=== PATIENT | male | born 1965 | race Caucasian/White ===

== ENCOUNTER 2023-02-03 17:04 | Emergency (ER) | payer OTHER, SELFPAY ==
[2023-02-03 17:13] VITALS: BP 114/72; PULSE 92; RESP 16; TEMP 36.3; O2SAT 100
[2023-02-03 17:40] LABS: Basophils Absolute Auto 0.1 K/mm3 (0.0-0.1); Basophils Percent Auto 0.8 % (0.2-1.2); Eosinophils Percent Auto 0.6 % (0-4.4); Hemoglobin 13.3 g/dL (14.0-18.0); Immature Granulocyte Absolute 0.07 K/mm3 (0.00-0.031); Lymphocytes Absolute Auto 1.81 K/mm3 (0.9-3.2); Lymphocytes Percent Auto 24.9 % (18.3-44.2); Mean Corpuscular HGB Conc 32.4 g/dl (32-36); Mean Corpuscular Hemoglobin 31.2 pg (26-34); Mean Corpuscular Volume 96.2 fl (80-100); Mean Platelet Volume 9.6 fl (7.4-10.4); Monocytes Absolute Auto 0.8 K/mm3 (0.1-0.6); Monocytes Percent Auto 10.6 % (2.6-8.5); Neutrophils Absolute Auto 4.5 K/mm3 (1.3-6.7); Neutrophils Percent Auto 62.1 % (45.5-73.1); Platelet Count Result 326 k/mm3 (150-375); Red Blood Count 4.26 M/mm3 (4.6-6.20); Red Cell Distribution Width 14.4 % (11.5-14.5); White Blood Count 7.3 K/mm3 (4.5-10.0)
[2023-02-03 17:41] LABS: Appearance Urine Clear (Clear); Bilirubin Urine Negative (Negative); Blood Urine Negative (Negative); Color Urine Yellow (Yellow); Glucose Urine UA Negative (Negative); Ketones Urine Negative (Negative); Leukocyte Esterase Ur Negative LEU/UL (Negative); Nitrate Urine Negative (Negative); Protein Urine Negative (Negative); Specific Grav Ur 1.011 (1.001-1.035)
[2023-02-03 17:50] LABS: Alanine Aminotransferase 17 U/L (6-50); Albumin Level 3.9 g/dL (3.5-5.1); Alkaline Phosphatase 55 U/L (38-126); Anion Gap 5 mmol/L (8-16); Aspartate Amino Transferase 24 U/L (17-59); Bilirubin,Total 0.3 mg/dL (0.2-1.3); Blood Urea Nitrogen 16 mg/dL (9-20); Calcium 8.5 mg/dL (8.4-10.2); Carbon Dioxide 29 mmol/L (22-30); Chloride 104 mmol/L (98-107); Estimated CRCL calculation 104 ml/min; Estimated Glomerular Filt Rate > 60; Glucose 108 mg/dL (65-110); Potassium 4.9 mmol/L (3.4-5.0); Sodium 138 mmol/L (137-145)
[2023-02-03 17:52] LABS: Add Urine Microscopic? NO
[2023-02-03 18:06] LABS: Barbiturate Screen Urine Negative (Negative); Benzodiazepines Screen Urine Negative (Negative)
[2023-02-03 18:09] LABS: Acetaminophen < 10 ug/mL (10-30); Amphetamine Screen Urine Negative (Negative); Cannabinoid Screen Urine Negative (Negative); Cocaine Screen Urine Negative (Negative); Ethanol < 10 mg/dL (<10); Methadone Screen Urine Negative (Negative); Phencyclidine Screen Urine Negative (Negative); Salicylate < 1.0 mg/dL (2-20)
[2023-02-03 18:21] LABS: Opiate Screen Urine Negative (Negative)
--- NOTE | 2023-02-03 18:28 | ED.PSYCH ---
HPI - Psych General Chief Complaint: Psychiatric Symptoms Stated Complaint: Manic episode, making SI per staff, pt denies SI Time Seen by Provider: 02/03/23 17:32 Source: patient and old records reviewed Mode of arrival: EMS Limitations: no limitations History of Present Illness HPI Narrative: Patient is a 57 y/o male, with PMH of alcoholism, who presents to the ED via EMS with report of SI. Patient is currently residing at [facility]. He reports he was sitting in his room today and did not feel like going to the group therapy session. He got into a verbal argument with staff and felt like he was being forced to do something he did want to do. He also states another resident there was making comments about his sexuality and being out on the streets which made him feel triggered and angry. Patient reportedly made suicidal comments to staff and comments of wanting to harm the other resident. He states he made the statements in part to try to get out of [place], but they were also partly true. He would not explain further what statements he made. He has attempted suicide once before in his 20s. Denies current SI. Denies any other complaints. Review of Systems Review of Systems: CONSTITUTIONAL: Denies fever, chills, or sweats. CARDIOVASCULAR: Denies chest pain. RESPIRATORY: Denies dyspnea. GASTROINTESTINAL: Denies abdominal pain, nausea, vomiting, or diarrhea. NEUROLOGIC: Denies headache, numbness, or weakness. PSYCHIATRIC: See HPI. All systems reviewed & are unremarkable except as noted in HPI and below PMFSH Social History Social History Substance use type: does not use Exam Narrative: GENERAL: Mildly disheveled, well-nourished, non-toxic, in no acute distress. HEAD: Normocephalic, atraumatic. NECK: Supple. No adenopathy, no masses. RESPIRATORY: Airway patent, respirations nonlabored. Clear to auscultation bilaterally, no rales, rhonchi, wheezing. CARDIOVASCULAR: Regular rate and rhythm without murmurs, rubs, or gallops. Radial pulses 2+ and equal bilaterally. ABDOMINAL: Soft, nontender, nondistended, no hepatosplenomegaly. Normoactive BS. MUSCULOSKELETAL: Moves all extremities. Strength/ROM intact without gross deformities. SKIN: Warm, dry, normal color. No rashes. NEURO: A&O X3. Speech clear. Cranial nerves II-XII grossly intact. Steady gait. Somewhat jittery, no ataxic movements. PSYCHIATRIC: Mildly anxious. Circumference speech. Paranoia. Course Vital Signs Vital signs: Vital Signs Temperature 97.4 F L 02/03/23 17:13 Pulse Rate 92 02/03/23 17:13 Respiratory Rate 16 02/03/23 17:13 Blood Pressure 114/72 02/03/23 17:13 Pulse Oximetry 100 02/03/23 17:13 Oxygen Delivery Room Air 02/03/23 17:13 Temperature 97.4 F L 02/03/23 17:13 Pulse Rate 96 02/03/23 22:31 Respiratory Rate 18 02/03/23 22:31 Blood Pressure 110/82 02/03/23 22:31 Pulse Oximetry 100 02/03/23 22:31 Oxygen Delivery Room Air 02/03/23 17:13 MDM - Psych MDM Narrative Medical decision making narrative: Patient presented to ED with concern for SI, agitation. Patient currently inpatient @ [facility]. Patient denying SI at the time of my evaluation. Patient appears to be experiencing paranoia, but otherwise stable, no acute distress, nontoxic-appearing. ED psych work-up initiated. Labs unremarkable. No significant abnormalities. Patient medically cleared to undergo psychiatric evaluation by crisis. Crisis evaluated patient and determined him to meet criteria for discharge home with safety planning. Patient was given numerous resources on shelters, housing options, rehab centers. Patient in agreement with this plan. He states he did not want to go back to [place]. He continues to deny active SI/HI. Alert and oriented x4. I discussed return precautions. Patient discharged in stable condition. Medical Records Attestation: I reviewed the patient's medical records. Lab
[2023-02-03 18:42] LABS: Thyroid Stimulating Hormone 0.469 uIU/mL (0.465-4.680)
[2023-02-03 20:09] LABS: Influenza A QL RT-PCR Negative (Negative); Influenza B QL RT-PCR Negative (Negative); RSV RNA, RT-PCR Negative (Negative); SARS-CoV-2 RNA PCR Negative (Negative)
--- NOTE | 2023-02-03 21:01 | PC.NURSE ---
Crisis here to evaluate patient
[2023-02-03 22:31] VITALS: BP 110/82; PULSE 96; RESP 18; O2SAT 100
== END 2023-02-03 22:33 | disposition home or self-care (01) ==
PROVIDERS: Emergency Medicine; Emergency Provider Physician Assistant; PCP Internal Medicine
DX: R45.851 Suicidal ideations (principal); F32.A Depression, unspecified; Z20.822 Contact with and (suspected) exposure to COVID-19
CPT/HCPCS: 36415; 80053; 80307; 81003; 84443; 85025; 87637; 99284